=== PATIENT | female | born 1955 | race Caucasian/White ===

== ENCOUNTER → 2020-04-09 | Outpatient (CLI) | payer OTHER, MEDICARE ==
[~2020-04-09] MED LIST: LOPRESSOR 225 MG/TAB PO; PROTONIX 40MG T40 MG PO; SYNTHROID0.05 MG/TA PO; VERAPAMIL 440 MG/TAB PO; ZYRTEC 10MG10 MG PO
== END ==
LOC: MC.RAD 08:21
DX: N63.22 Unspecified lump in the left breast, upper inner quadrant (principal)

== ENCOUNTER → 2021-05-04 | Outpatient (CLI) | payer MEDICARE, OTHER | LOC: MC.RAD 07:36 | DX: Z12.31 Encounter for screening mammogram for malignant neoplasm of breast (principal) ==

== ENCOUNTER → 2022-07-15 | Outpatient (CLI) | payer MEDICARE, OTHER | LOC: MC.RAD 09:00 | DX: Z12.31 Encounter for screening mammogram for malignant neoplasm of breast (principal) ==